=== PATIENT | female | born 1965 ===

== ENCOUNTER → 2017-01-01 | Outpatient (CLI) | payer MEDICAID ==
[2017-01-01 09:50] LABS: Basophils # (auto) 0 uL; Basophils % (auto) 0.5 % (0.0-2.0); Eosinophils # (auto) 0.1 uL; Eosinophils % (auto) 2.1 % (0.0-7.0); Hematocrit 38.9 % (36.0-46.0); Hemoglobin 13.2 g/dL (12.2-16.2); Lymphocytes # (auto) 2.1 uL; Mean Corpuscular Hemoglobin 30.7 pg (28.0-32.0); Mean Corpuscular Hgb Conc. 33.8 g/dL (32.0-36.0); Mean Corpuscular Volume 90.7 fL (80.0-100.0); Mean Platelet Volume 7.5 fL (6.9-10.8); Monocytes # (auto) 0.4 uL; Monocytes % (auto) 5.8 % (0.0-12.0); Neutrophils # (auto) 4.1 uL; Neutrophils % (auto) 60.6 % (37.0-80.0); Platelet Count (auto) 281 10^3/uL (140-450); Red Cell Distribution Width 14.6 % (11.8-14.3); White Blood Cell 6.8 10^3/uL (4.4-10.8)
[2017-01-01 10:25] LABS: BUN/Creatinine Ratio 11.7; Bilirubin, Total 0.4 mg/dL (0.2-1.0); Calcium 9.1 mg/dL (8.5-10.1); Potassium 3.6 mmol/L (3.5-5.1); Total Protein 8.2 g/dL (6.4-8.2)
[2017-01-02 05:06] LABS: Rheumatoid Arthritis Factor 10.4 IU/mL (0.0-13.9)
== END | disposition home or self-care (01) ==
LOC: LAB 09:31
DX: I10 Essential (primary) hypertension (principal); D64.9 Anemia, unspecified; M06.9 Rheumatoid arthritis, unspecified; M25.50 Pain in unspecified joint; M45.0 Ankylosing spondylitis of multiple sites in spine; Z79.899 Other long term (current) drug therapy
CPT/HCPCS: 36415; 80053; 85025; 85652; 86141; 86200; 86431; 86812